=== PATIENT | male | born 1965 | race Hispanic/Latino ===

== ENCOUNTER 2018-01-29 13:10 | Inpatient (IN) | payer BC ==
[2018-01-29 13:10] VITALS: BMI 33.5
[2018-01-29 13:12] VITALS: O2SAT 95
--- NOTE | 2018-01-29 13:23 | ED PDOC ---
Psych Transfer Clearance - Clearance Statement Clearance Statement: Reviewed vital signs, lab results and transfer papers. Patient clinically stable for psychiatric admission.
[2018-01-29] MEDS ORDERED: DiphenhydrAMINE 50 mg/ml Inj IM PRN (14:15)
[2018-01-29] MEDS ORDERED: Alum-Mag Hydrox-Simethicone Susp (30 mL) PO PRN (14:15)
[2018-01-29] MEDS ORDERED: Magnesium Hydroxide Susp 30 ml UD PO PRN (14:15)
--- NOTE | 2018-01-29 14:45 | PCM.BM ---
<Frances Payan - Last Filed: 01/29/18 14:40> Treatment Plan Problems - Problems identified on initial assessmt Hopelessness/Helplessness Date Initiated: 01/29/18 Time Initiated: 14:45 Assessment reference: HP, NA Status: Active Treatment assets and liabiliti Patient Assests: good support system, financial stabiity, cooperative, self- reliant, ADL independent Patient Liabilities: substance abuse, medical problems - Milieu Protocol Maintain good personal hygiene: daily Encourage regular showers, daily Remind patient to perform daily oral care, daily Assist patient to perform ADL's Conduct patient checks and document Observation sheet: Q15 minutes Maintain personal safety: every shift Educate patient to report safety concerns to staff, every shift Monitor environment for contraband/sharps Medication safety: Monitor for expected outcome, potential side effects: every shift, Assess barriers to learning: every shift, Assess readiness for medication education: every shift <Costa Leyva - Last Filed: 01/30/18 17:02> Family Contact Family involvement: Family/SO is involved Family contact: Patient agrees to contact, Family has been contacted by patient Family contact name: Liana () [phone] Family contacted how many times per week?: 3 - Goals for Treatment Patient goals for treatment: Pt reported he would like to be linked to outpatient services to help him better control his anxiety. Pt identified his anxiety as the reason he drinks. Discharge/Continuing Care - Education Needs Education Needs: Family Medication, Family Diagnosis/Disease Process, Family Coping Skills, Family Anger Management skills, Family Community resources, Family Aftercare Safety Plan, Patient Medication, Patient Diagnosis/Disease Process, Patient Coping Skills, Patient Anger Management skills, Patient Community resources, Patient Aftercare Safety Plan - Discharge Discharge Criteria: Tolerates medication w/o severe side effects, Free of agitation, Normal sleep pattern, Ability to care for self, No longer exhibiting s/s of withdrawal, Reduction of target symptoms Discharge to:: Home, With Family - Treatment Team Participation Was Patient/Family/SO present at Treatment Team Meeting: Yes <Bijal Heaton - Last Filed: 01/31/18 10:36> - Diagnosis (1) Alcohol-induced mood disorder Status: Acute Interventions: Medication management, Individual and group therapy, Psychoeducation 01/31/18 10:36 (2) Alcohol use disorder Status: Acute Interventions: Medication management, Individual and group therapy, Psychoeducation 01/31/18 10:37 (3) Cocaine abuse Status: Acute Interventions: Medication management, Individual and group therapy, Psychoeducation 01/31/18 10:37 <Britnye Kumar M - Last Filed: 01/31/18 16:00> Discharge/Continuing Care - Education Needs Education Needs: Family Medication, Family Diagnosis/Disease Process, Family Coping Skills, Family Anger Management skills, Family Community resources, Family Aftercare Safety Plan, Patient Medication, Patient Diagnosis/Disease Process, Patient Coping Skills, Patient Anger Management skills, Patient Community resources, Patient Aftercare Safety Plan - Discharge Discharge Criteria: Tolerates medication w/o severe side effects, Free of Suicidal thoughts, Normal sleep pattern, Ability to care for self, Reduction of target symptoms Discharge to:: Home, With Family - Additional Comments 01/31/18 15:59 Pt seen in team meeting. Reason for hospitalization reviewed and discussed. Pt stated "I've been going through depression and anxiety." Pt denied active SI and HI at time of assessment. Pt's social and medical issues reviewed and discussed. Pt's medications reviewed. Tx plan reviewed and pt is agreeable. SW to continue to follow case. - Treatment Team Participation Discussed with Family/SO: No Was Patient/Family/SO present at Treatment Team Meeting: Yes
--- NOTE | 2018-01-29 17:15 | CP.PCM.CON ---
History of Present Illness - History of Present Illness History of Present Illness: 52 yo male with history of DM2, HTN and COPD admitted at [facility] because of worsening depression. Review of Systems - Review of Systems All systems: reviewed and no additional remarkable complaints except (aside from those mentioned above, 12 point system review were negative by me) Past Patient History - Infectious Disease Hx of Infectious Diseases: None - Past Medical History & Family History Past Medical History?: Yes - Past Social History Smoking Status: Heavy Smoker > 10 Cigarettes Daily Alcohol: > 2 Drinks/Day - CARDIAC Hx Cardiac Disorders: Yes Hx Hypertension: Yes - PULMONARY Hx Respiratory Disorders: Yes Hx Chronic Obstructive Pulmonary Disease (COPD): Yes Hx Pneumonia: Yes Hx Sleep Apnea: Yes (uses CPAP at home) - NEUROLOGICAL Hx Seizures: Yes (ETOH related) - HEENT Hx HEENT Problems: Yes Other/Comment: HAD SEPTAL SURGERY DUE TO DEVIATION - RENAL Hx Chronic Kidney Disease: No - ENDOCRINE/METABOLIC Hx Endocrine Disorders: Yes Hx Diabetes Mellitus Type 2: Yes - HEMATOLOGICAL/ONCOLOGICAL Hx Cancer: No Hx Human Immunodeficiency Virus (HIV): No - INTEGUMENTARY Hx Dermatological Problems: No - MUSCULOSKELETAL/RHEUMATOLOGICAL Hx Musculoskeletal Disorders: Yes Hx Back Pain: Yes Hx Fractures: Yes (right great toe) - GASTROINTESTINAL Hx Gastrointestinal Disorders: Yes Hx Gastritis: Yes - GENITOURINARY/GYNECOLOGICAL Hx Genitourinary Disorders: No Hx Sexually Transmitted Disorders: No - PSYCHIATRIC Hx Anxiety: Yes Hx Bipolar Disorder: Yes Hx Depression: Yes Hx Emotional Abuse: No Hx Physical Abuse: No Hx Sexual Abuse: No Hx Substance Use: Yes (cocaine) - SURGICAL HISTORY Hx Surgeries: Yes Hx Tonsillectomy: Yes (as a child) - ANESTHESIA Hx Anesthesia: Yes Hx Anesthesia Reactions: No Hx Malignant Hyperthermia: No Has any member of the family had a problem w/ anesthesia?: No Meds Allergies/Adverse Reactions: Allergies Allergy/AdvReac Type Severity Reaction Status Date / Time No Known Allergies Allergy Verified 01/29/18 13:10 - Medications Medications: Current Medications Acetaminophen (Tylenol 325mg Tab) 650 mg PO Q4 PRN PRN Reason: Pain, Mild (1-3) Al Hydrox/Mg Hydrox/Simethicone (Maalox Plus 30 Ml) 30 ml PO Q4 PRN PRN Reason: Dyspepsia Atenolol (Tenormin) 50 mg PO BID BLESSING Atorvastatin Calcium (Lipitor) 10 mg PO HS BLESSING Chlordiazepoxide (Librium) 10 mg PO Q6 ON LICENSE OF [facility] Last Admin: 01/29/18 15:05 Dose: 10 mg Diphenhydramine HCl (Benadryl) 50 mg IM Q6 PRN PRN Reason: Extrapyramidal S/S Unable PO Diphenhydramine HCl (Benadryl) 50 mg PO Q6 PRN PRN Reason: Extrapyramidal Symptoms Folic Acid (Folic Acid) 1 mg PO DAILY ON LICENSE OF [facility] Gabapentin (Neurontin) 400 mg PO TID ON LICENSE OF [facility] Glipizide (Glucotrol) 10 mg PO DAILY ON LICENSE OF [facility] Haloperidol (Haldol) 5 mg PO Q4 PRN PRN Reason: Agitation Haloperidol Lactate (Haldol) 5 mg IM Q4 PRN PRN Reason: Agitation, Unable to Take PO Loratadine (Claritin) 10 mg PO DAILY ON LICENSE OF [facility] Lorazepam (Ativan) 2 mg IM Q4 PRN PRN Reason: Anxiety/Agitation,Unable PO Lorazepam (Ativan) 2 mg PO Q4 PRN PRN Reason: Anxiety/Agitation Magnesium Hydroxide (Milk Of Magnesia) 30 ml PO HS PRN PRN Reason: Constipation Metformin HCl (Glucophage) 1,000 mg PO BID ON LICENSE OF [facility] Multivitamins/Minerals (Therapeutic-M Tab) 1 tab PO DAILY ON LICENSE OF [facility] Quetiapine Fumarate (Seroquel) 100 mg PO HS ON LICENSE OF [facility] Sertraline HCl (Zoloft) 25 mg PO DAILY ON LICENSE OF [facility] Thiamine HCl (Vitamin B1 Tab) 100 mg PO DAILY ON LICENSE OF [facility] Physical Exam - Constitutional Appears: No Acute Distress - Head Exam Head Exam: ATRAUMATIC - Eye Exam Eye Exam: absent: Scleral icterus - ENT Exam ENT Exam: Mucous Membranes Moist - Neck Exam Neck exam: Negative for: Meningismus - Respiratory Exam Respiratory Exam: absent: Rales, Rhonchi, Wheezes, Respiratory Distress - Cardiovascular Exam Cardiovascular Exam: REGULAR RHYTHM, +S1, +S2 - GI/Abdominal Exam GI & Abdominal Exam: Soft. absent: Tenderness - Rectal Exam Rectal Exam: Deferred - Extremities Exam Extremities exam: Negative for: calf tenderness, pedal edema - Back Exam Back exam: absent: tenderness - Neurological Exam Neurological exam: Alert, Oriented x3 - Psychiatric Exam Psychiatric exam: Normal Affect - Skin Skin Exam: Dry, Intact Results - Vital Signs Recent Vital Signs: Last Vital Signs Temp 98.0 F 01/29/18 13:10 Pulse 81 01/29/18 14:17 Resp 20 01/29/18 14:17 BP 124/85 01/29/18 13:10 Pulse Ox 95 01/29/18 13:10 - Labs Labs: Laboratory Results - last 24 hr 01/29/18 15:28 POC Glucose (mg/dL) 170 H Assessment & Plan (1) Depression Status: Acute Comment: psyche is managing (2) Alcohol abuse Status: Acute Comment: psyche is managing (3) DM2 (diabetes mellitus, type 2) Status: Chronic Comment: BS uncontrolled since patient unable to take medications today. continue Glipizide and Metformin. accuchek ACHS. HgA1C, BMP in am (4) HTN (hypertension) Status: Chronic Comment: BP stable. continue Atenolol 50mg PO BID (5) COPD (chronic obstructive pulmonary disease) Status: Chronic Comment: on Advair 1 puff q 12hrs
[2018-01-29] MEDS: Fluticasone-Salmeterol 250-50mcg Diskus IH SCH (21:06)
[2018-01-29] MEDS ORDERED: Insulin Lispro (humaLOG) 100 Units/ml Inj SC SCH (22:00)
[2018-01-29] MEDS: Insulin Lispro (humaLOG) 100 Units/ml Inj SC SCH (22:15)
[2018-01-30] MEDS: Multivitamin With Minerals Tab PO SCH (08:13)
[2018-01-30] MEDS: Fluticasone-Salmeterol 250-50mcg Diskus IH SCH ×2 (08:14→21:06)
[2018-01-30] MEDS: Insulin Lispro (humaLOG) 100 Units/ml Inj SC SCH ×4 (09:10→21:07)
[2018-01-30 09:25] LABS: HEMOGLOBIN 15.1 g/dL (12.0-18.0); MEAN CELL VOLUME 92.8 fl (80.0-94.0); MEAN CORPUSCULAR HEMOGLOBIN 31.7 pg (27.0-31.0); MEAN CORPUSCULAR HGB CONC 34.2 g/dL (33.0-37.0); RBC 4.77 Mil/uL (4.40-5.90); RED CELL DISTRIBUTION WIDTH 15.5 % (11.5-14.5); WHITE BLOOD COUNT 3.6 K/uL (4.8-10.8)
[2018-01-30 09:40] LABS: AMYLASE 75 U/L (30-110); BLOOD UREA NITROGEN 18 mg/dl (9-20); CALCIUM 9.9 mg/dL (8.4-10.2); GFR AFRICAN-AMERICAN > 60; GFR NON-AFRICAN AMERICAN > 60; HDL CHOLESTEROL 40 MG/DL (30-70); LIPASE 102 U/L (23-300)
[2018-01-30 09:51] LABS: LDL CHOLESTEROL 113 mg/dL (0-129)
--- NOTE | 2018-01-30 12:28 | PCM.PSYCH ---
Initial Psychiatric Evaluation - Initial Psychiatric Evaluation Type of Admission: Voluntary Legal Status: Capacity Chief Complaint (in patient's own words): I am anxious and depressed Patient's Reaction to Hospitalization: pt requested help History of Present Illness and Precipitating Events: pt is 52ys old male previous psychiatric diagnosis of alcohol use disorder and bipolar disorder, pt non compliant with medications or follow up relating that to insurance problems, pt has been feeling increasingly depressed and anxious relapsed on alcohol using half a pint of vodka daily, on the day pt presented to ER he started experiencing suicidal ideations with plan to overdose on pills , he came to ER seeking help on evaluation pt reported passive suicidal ideations without plan on the unit, reported low energy anhedonia and increased anxiety denied manic or psychotic symptoms, BAL was 300, utox positive for cocaine Current Medications: Active Medications Generic Name Dose Route Start Last Admin Trade Name Freq PRN Reason Stop Dose Admin Acetaminophen 650 mg 01/29/18 14:15 01/30/18 10:01 Tylenol 325mg Tab PO 650 mg Q4 PRN Administration Pain, Mild (1-3) Al Hydrox/Mg Hydrox/Simethicone 30 ml 01/29/18 14:15 Maalox Plus 30 Ml PO Q4 PRN Dyspepsia Atenolol 50 mg 01/29/18 17:15 01/30/18 08:15 Tenormin PO 50 mg BID BLESSING Administration Atorvastatin Calcium 10 mg 01/29/18 22:00 01/29/18 21:07 Lipitor PO 10 mg HS BLESSING Administration Chlordiazepoxide 10 mg 01/30/18 17:00 Librium PO Q8 BLESSING Diphenhydramine HCl 50 mg 01/29/18 14:15 Benadryl IM Q6 PRN Extrapyramidal S/S Unable PO Diphenhydramine HCl 50 mg 01/29/18 14:15 Benadryl PO Q6 PRN Extrapyramidal Symptoms Folic Acid 1 mg 01/30/18 09:00 01/30/18 08:16 Folic Acid PO 1 mg DAILY BLESSING Administration Gabapentin 400 mg 01/30/18 09:00 01/30/18 08:14 Neurontin PO 400 mg TID BLESSING Administration Glipizide 10 mg 01/30/18 09:00 01/30/18 08:14 Glucotrol PO 10 mg DAILY BLESSING Administration Haloperidol 5 mg 01/29/18 14:13 Haldol PO Q4 PRN Agitation Haloperidol Lactate 5 mg 01/29/18 14:15 Haldol IM Q4 PRN Agitation, Unable to Take PO Insulin Human Lispro 0 units 01/29/18 22:00 01/30/18 10:58 Humalog SC Not Given ACHS [facility] Protocol Loratadine 10 mg 01/30/18 09:00 01/30/18 08:15 Claritin PO 10 mg DAILY BLESSING Administration Lorazepam 2 mg 01/29/18 14:15 Ativan IM Q4 PRN Anxiety/Agitation,Unable PO Lorazepam 2 mg 01/29/18 14:15 01/29/18 21:57 Ativan PO 2 mg Q4 PRN Administration Anxiety/Agitation Magnesium Hydroxide 30 ml 01/29/18 14:15 Milk Of Magnesia PO HS PRN Constipation Metformin HCl 1,000 mg 01/29/18 17:15 01/30/18 08:13 Glucophage PO 1,000 mg BID BLESSING Administration Multivitamins/Minerals 1 tab 01/30/18 09:00 01/30/18 08:13 Therapeutic-M Tab PO 1 tab DAILY BLESSING Administration Quetiapine Fumarate 300 mg 01/30/18 22:00 Seroquel PO HS BLESSING Fluticasone/Salmeterol 1 puff 01/29/18 21:00 01/30/18 08:14 Advair Diskus 250/50 IH 1 puff Q12 BLESSING Administration Sertraline HCl 25 mg 01/30/18 09:00 01/30/18 08:15 Zoloft PO 25 mg DAILY BLESSING Administration Thiamine HCl 100 mg 01/30/18 09:00 01/30/18 08:16 Vitamin B1 Tab PO 100 mg DAILY BLESSING Administration Past Psychiatric History - Past Psychiatric History Explanation of prior treatment: multiple inpatient hospitalizations, history of non compliance with treatment History of ETOH/Drug Use: history of alcohol and cocaine use Pertinent Medical Hx (Current Medical&Sleep Prob, Allergies): Allergies Allergy/AdvReac Type Severity Reaction Status Date / Time No Known Allergies Allergy Verified 01/29/18 13:10 MetFORMIN [glucoPHAGE] 1,000 mg PO BID 03/03/15 Atenolol 50 mg PO BID 08/23/17 GlipiZIDE [Glucotrol] 10 mg PO DAILY 08/23/17 Simvastatin 10 mg PO HS 09/24/17 QUEtiapine [Seroquel] 300 mg PO HS #30 tab 09/27/17 Gabapentin [Neurontin] 400 mg PO TID 01/29/18 Mental Status Examination - Personal Presentation Personal Presentation: Looks older than stated age - Affect Affect: Constricted, Depressed - Motor Activity Motor Activity: Psychomotor Retardation - Reliability in Providing Information Reliability in Providing Information: Poor, due to altered mood - Speech Speech: Relevant - Mood Mood: Depressed, Anxious - Formal Thought Process Formal Thought Process: Circumstantial - Hallucinations/Delusions Additional comments: pt denied perceptual disturbances, non elicited - Obsessions/Compulsions Obsessions: No Compulsions: No - Cognitive Functions Orientation: Person, Place, Situation Sensorium: Alert Attention/Concentration: Attentive Abstract Thinking: [place] Judgement: Imparied, as evidence by: Poor judgement, Imparied, as evidence by: Lack of insight into illness - Risk Risk: Withdrawal, Diminished functioning - Strength & Assets Inventory Strength & Assets Inventory: Life experience - Limitations Additional comments: poor compliance DSM 5 DX - DSM 5 DSM 5 Diagnosis: alcohol induced mood disorder with depressive features during withdrawal alcohol use disorder cocaine abuse bipolar disorder depressed - Recommended/Plan of Treatment Treatment Recommendations and Plan of Treatment: librium ptotocol/ downtitrate gradually and monitor pt for symptoms and signs of withdrawal neurontin 400mg tid seroquel 300mg qhs motivational, group and supportive therapy
[2018-01-31] MEDS: Fluticasone-Salmeterol 250-50mcg Diskus IH SCH ×2 (08:25→21:12)
[2018-01-31] MEDS: Insulin Lispro (humaLOG) 100 Units/ml Inj SC SCH ×4 (08:28→21:13)
[2018-01-31] MEDS: Multivitamin With Minerals Tab PO SCH (08:30)
--- NOTE | 2018-01-31 10:41 | PCM.PYCHPN ---
Psychiatric Progress Note - Psychiatric Progress Note Patient seen today, length of contact: Patient evaluated, case discussed w/ team , chart reviewed Patient Chief Complaint: "I'm depressed." Problems Identified/Issues Discussed: Patient continues to report that he feels depressed. No current AH/VH/SI/HI/ paranoia/delusions. He reports that he does not want to take the Zoloft because he does not feel that it was helpful in the past. No adverse effects to medications reported. He is currently minimizing his alcohol and cocaine abuse. Psychoeducation provided on the dangers of alcohol/cocaine abuse and the importance of compliance w/ treatment and medications. No current signs/ symptoms of ETOH withdrawal. Will continue to taper Librium. Medication Change: Yes (Taper Librium) Medical Record Reviewed: Yes Consults ordered or reviewed: Medicine consult Mental Status Examination - Cognitive Function Orientation: Person, Place, Situation, Time Memory: Intact Attention: WNL Concentration: WNL Association: WNL Fund of Knowledge: WN Decription of patient's judgement and insights: Poor I/J - Mood Mood: Depressed, Anxious - Affect Affect: Constricted, Depressed - Speech Speech: Appropriate - Formal Thought Process Formal Thought Process: No Impairment Psychotic Thoughts and Behaviors: No AH/VH/paranoia/delusions - Suicidal Ideation Suicidal Ideation: No - Homicidal Ideation Homicidal Ideation: No Goal/Treatment Plan - Goal/Treatment Plan Need for Continued Stay: Remain at risks for inpatient hospitalization, Severe depression anxiety, Discharge may exacerbated symptoms Progress Toward Problem(s) and Goals/Treatment Plan: Alcohol Induced Mood Disorder; Alcohol Use Disorder; Cocaine Use Disorder -Stop Zoloft -Continue Seroquel -Taper Librium -Medicine consult -Individual and group therapy -Disposition planning Estimated Date of D/C: 02/03/18
--- NOTE | 2018-01-31 11:35 | CARD ---
APPROVED REPORT EKG Measurement Heart [id number] <Conclusion> Normal sinus rhythm Normal ECG
[2018-02-01] MEDS: Insulin Lispro (humaLOG) 100 Units/ml Inj SC SCH ×4 (08:39→21:11)
[2018-02-01] MEDS: Fluticasone-Salmeterol 250-50mcg Diskus IH SCH ×2 (08:39→21:09)
[2018-02-01] MEDS: Multivitamin With Minerals Tab PO SCH (08:41)
--- NOTE | 2018-02-01 08:43 | PCM.PYCHPN ---
Psychiatric Progress Note - Psychiatric Progress Note Patient seen today, length of contact: Patient evaluated, case discussed w/ team , chart reviewed Patient Chief Complaint: "I'm depressed." Problems Identified/Issues Discussed: Patient continues to report that he feels depressed. No current AH/VH/SI/HI/ paranoia/delusions. No adverse effects to medications reported. Psychoeducation provided on the dangers of alcohol/cocaine abuse and the importance of compliance w/ treatment and medications. No current signs/ symptoms of ETOH withdrawal. Will continue to taper Librium. Medication Change: Yes (Taper Librium) Medical Record Reviewed: Yes Consults ordered or reviewed: Medicine consult Mental Status Examination - Cognitive Function Orientation: Person, Place, Situation, Time Memory: Intact Attention: WNL Concentration: WNL Association: WNL Fund of Knowledge: WN Decription of patient's judgement and insights: Poor I/J - Mood Mood: Depressed - Affect Affect: Constricted - Speech Speech: Appropriate - Formal Thought Process Formal Thought Process: No Impairment Psychotic Thoughts and Behaviors: No AH/VH/paranoia/delusions - Suicidal Ideation Suicidal Ideation: No - Homicidal Ideation Homicidal Ideation: No Goal/Treatment Plan - Goal/Treatment Plan Need for Continued Stay: Remain at risks for inpatient hospitalization, Severe depression anxiety, Discharge may exacerbated symptoms Progress Toward Problem(s) and Goals/Treatment Plan: Alcohol Induced Mood Disorder; Alcohol Use Disorder; Cocaine Use Disorder -Continue Seroquel -Taper Librium -Medicine consult -Individual and group therapy -Disposition planning Estimated Date of D/C: 02/03/18
[2018-02-02 05:55] VITALS: BP 124/71; PULSE 70; RESP 20; TEMP 97.5
[2018-02-02] MEDS: Multivitamin With Minerals Tab PO SCH (08:33)
[2018-02-02] MEDS: Insulin Lispro (humaLOG) 100 Units/ml Inj SC SCH ×2 (08:34→12:25)
--- NOTE | 2018-02-02 09:35 | PCM.PYCHDC ---
Mental Status Examination - Mental Status Examination Orientation: Person, Place, Situation, Time Memory: Intact Mood: Neutral Affect: Broad Speech: Appropriate Attention: WNL Concentration: WNL Association: WNL Fund of Knowledge: WNL Formal Thought Process: No Impairment Description of patient's judgement and insight: Improved I/J; chronic poor J w/ alcohol abuse; psychoeducation provided Psychotic Thoughts and Behaviors: No AH/VH/paranoia/delusions Suicidal Ideation: No Current Homicidal Ideation?: No Discharge Summary - Discharge Note Reason for Hospitalization: As per initial HPI note: pt is 52ys old male previous psychiatric diagnosis of alcohol use disorder and bipolar disorder, pt non compliant with medications or follow up relating that to insurance problems, pt has been feeling increasingly depressed and anxious relapsed on alcohol using half a pint of vodka daily, on the day pt presented to ER he started experiencing suicidal ideations with plan to overdose on pills, he came to ER seeking help on evaluation pt reported passive suicidal ideations without plan on the unit, reported low energy anhedonia and increased anxiety denied manic or psychotic symptoms, BAL was 300, utox positive for cocaine Laboratory Data: Abnormal Lab Results 02/01/18 02/01/18 02/01/18 12:17 15:31 20:57 POC Glucose (mg/dL) 199 H 164 H 169 H 02/02/18 05:54 POC Glucose (mg/dL) 164 H Consultations:: List each consultation separately and include: 1. Reason for request. 2. Findings. 3. Follow-up Consultations: Medicine consult Summary of Hospital Course include:: 1. Description of specific treatment plan utilized for patients during their course of treatmen. 2. Summarize the time- course for resolution of acute symptoms and/or regressed behaviors. 3. Describe issues identified and worked on during hospitalization. 4. Describe medication utilized. 5. Describe medical problems identified and treated. 6. Reassessment of suicide risk Summary of Hospital Course: Patient was admitted to the psychiatry unit. Individual and group therapy were provided. Patient was restabilized on Seroquel 300 mg PO HS. He denies current depression/anxiety/SI/HI. Psychoeducation provided on the dangers of alcohol abuse. Patient informed to call 911 or go to the nearest ED if he has suicidal ideation in the future. Disposition explained to patient's , see SW note. No current signs/symptoms of ETOH withdrawal. - Diagnosis (1) Alcohol-induced mood disorder Current Visit: Yes Status: Chronic (2) Alcohol use disorder Current Visit: No Status: Chronic (3) Cocaine abuse Current Visit: No Status: Chronic - Final Diagnosis (DSM 5) Condition upon Discharge: STABLE DSM 5: Alcohol Induced Mood Disorder; Alcohol Use Disorder; Cocaine Use Disorder Disposition: HOME/ ROUTINE Follow-up Treatment Plan: Alcohol Induced Mood Disorder; Alcohol Use Disorder; Cocaine Use Disorder -Continue Seroquel -Librium stopped; no current signs/symptoms of ETOH withdrawal -Patient not agreeable to inpatient alcohol rehab; patient referred to outpatient treatment Prescriptions/Medication Reconciliation: Gabapentin [Neurontin] 400 mg PO TID #90 cap Loratadine [Claritin] 10 mg PO DAILY #30 tab QUEtiapine [SEROquel] 300 mg PO HS #30 tab - Smoking Cessation Smoking Cessation Medication prescribed: No Reason for not providing: Patient declined - Antipsychotic Medications Pt discharged on 2 or more routine antipsychotic medications: No
[2018-02-02] MEDS: Fluticasone-Salmeterol 250-50mcg Diskus IH SCH (12:21)
== END 2018-02-02 12:51 | disposition home or self-care (01) | DRG 895 ==
LOC: H.ER 13:10 → H.ERHOLD 13:22 → H.STEP 13:56
PROVIDERS: ADMIT Psychiatry & Neurology Psychiatry; ATTEND Psychiatry & Neurology Psychiatry
PROC: HZ56ZZZ Individual Psychotherapy for Substance Abuse Treatment, Psychoeducation (ICD-10-PCS; principal; 2018-01-29)
PROC: GZHZZZZ Group Psychotherapy (ICD-10-PCS; 2018-01-29)
DX: F10.94 Alcohol use, unspecified with alcohol-induced mood disorder (principal); R45.851 Suicidal ideations; F14.90 Cocaine use, unspecified, uncomplicated; Y90.9 Presence of alcohol in blood, level not specified; Z91.14 Patient's other noncompliance with medication regimen; Z91.19 Patient's noncompliance with other medical treatment and regimen; E11.9 Type 2 diabetes mellitus without complications; I10 Essential (primary) hypertension; J44.9 Chronic obstructive pulmonary disease, unspecified; F17.210 Nicotine dependence, cigarettes, uncomplicated